=== PATIENT | male | born 1965 | race African-American/Black ===

== ENCOUNTER 2017-08-06 16:24 | Emergency (ER) | payer SELFPAY | END 2017-08-06 18:31 | disposition home or self-care (01) | LOC: ERS 16:24 | DX: R04.0 Epistaxis (principal); F17.210 Nicotine dependence, cigarettes, uncomplicated | CPT/HCPCS: 99283 ==

== ENCOUNTER 2018-04-09 06:07 | Emergency (ER) | payer SELFPAY ==
[2018-04-09] MEDS ORDERED: Proparacaine 0.5% Opth 15 ML BOT ONE (06:22)
[2018-04-09] MEDS ORDERED: Fluorescein Opthalmic Strip ONE (06:48)
== END 2018-04-09 07:30 | disposition home or self-care (01) ==
LOC: ERS 06:07
DX: T15.01XA Foreign body in cornea, right eye, initial encounter (principal); F17.210 Nicotine dependence, cigarettes, uncomplicated
CPT/HCPCS: 99283

== ENCOUNTER 2021-10-11 20:02 | Inpatient (IN) | payer SELFPAY ==
[2021-10-11 20:31] LABS: #Eosinphils 0.1 thou/uL (0.0-0.7); #Lymphocytes 1.1 thou/uL (1.20-3.40); #Monocytes 0.6 thou/uL (0.11-0.59); #Neutrophils 4.4 thou/uL (1.40-6.50); %Basophils 0.7 % (0.0-1.0); %Eosinophils 1.9 % (0.0-10.0); %Lymphocytes 17.6 % (21.0-51.0); %Monocytes 9.5 % (0.0-10.0); %Neutrophils 70.4 % (42.0-75.0); Hemoglobin 14.9 g/dL (14.0-18.0); Mean Corpuscular HGB CONC 32.5 g/dL (32.0-36.0); Mean Corpuscular Hemoglobin 30.7 pg (27.0-31.0); Mean Corpuscular Volume 94.3 fL (78.0-98.0); Mean Platelet Volume 8.8 fL (7.4-10.4); Platelet Count 123 thou/uL (130-400); RBC Distribution Width 12.8 % (11.5-14.5); Red Blood Cell (RBC) Count 4.87 mill/uL (4.70-6.10); White Blood Cell (WBC) Count 6.3 thou/uL (4.8-10.8)
[2021-10-11 20:42] LABS: INR-International Normal Ratio 1.1; PTT 33.3 sec (22.9-36.1); Prothrombin Time 14.6 sec (12.0-14.7)
[2021-10-11 21:00] LABS: ALT (SGPT) 14 U/L (8-55); AST (SGOT) 25 U/L (5-34); Albumin 3.8 g/dL (3.5-5.0); Alkaline Phosphatase 76 U/L (40-110); Anion Gap 11 mmol/L (10-20); BUN (Urea Nitrogen) 18 mg/dL (8.4-25.7); Bilirubin, Total 0.5 mg/dL (0.2-1.2); Calc. Creatinine Clearance 0 mL/min (70-130); Carbon Dioxide 30 mmol/L (22-29); Chloride 102 mmol/L (98-107); Globulin 5.9 g/dL (2.4-3.5); Glucose 88 mg/dL (70-105); Potassium 3.7 mmol/L (3.5-5.1); Protein, Total 9.7 g/dL (6.0-8.3); Sodium 139 mmol/L (136-145)
[2021-10-11] MEDS ORDERED: Aspirin Chewable 81 MG TAB ONE (21:16)
[2021-10-12 01:02] VITALS: BMI 23.1
[2021-10-12] MEDS ORDERED: hydrALAZINE 20 MG/ML VIAL SLOW IVP PRN (03:28)
[2021-10-12] MEDS ORDERED: Ondansetron PF 4 MG/2 ML Vial IVP PRN (03:28)
[2021-10-12 06:15] LABS: #Eosinphils 0.2 thou/uL (0.0-0.7); #Lymphocytes 1.2 thou/uL (1.20-3.40); #Monocytes 0.7 thou/uL (0.11-0.59); #Neutrophils 3.2 thou/uL (1.40-6.50); %Basophils 0.6 % (0.0-1.0); %Lymphocytes 23.1 % (21.0-51.0); %Monocytes 12.2 % (0.0-10.0); %Neutrophils 60.2 % (42.0-75.0); Hemoglobin 13.7 g/dL (14.0-18.0); Mean Corpuscular HGB CONC 33.4 g/dL (32.0-36.0); Mean Corpuscular Hemoglobin 31.9 pg (27.0-31.0); Mean Corpuscular Volume 95.6 fL (78.0-98.0); Mean Platelet Volume 8.8 fL (7.4-10.4); Platelet Count 116 thou/uL (130-400); White Blood Cell (WBC) Count 5.4 thou/uL (4.8-10.8)
[2021-10-12 06:37] LABS: Anion Gap 9 mmol/L (10-20); BUN (Urea Nitrogen) 15 mg/dL (8.4-25.7); Calc. Creatinine Clearance 65 mL/min (70-130); Calcium 9.1 mg/dL (7.8-10.44); Carbon Dioxide 29 mmol/L (22-29); Cardiac Risk 3.6 (Less than 4.5); Chloride 106 mmol/L (98-107); Cholesterol 137 mg/dl (< 200 Desired); Glucose 80 mg/dL (70-105); HDL Cholesterol 38 mg/dL (>60 Neg Risk); LDL Cholesterol, Calculated 90 mg/dL; Potassium 3.8 mmol/L (3.5-5.1); Sodium 140 mmol/L (136-145); Triglycerides 44 mg/dL (Less than 150)
[2021-10-12] MEDS: Aspirin 81 mg Enteric Coated Tablet PO SCH (09:14)
[2021-10-12 11:45] LABS: SARS-CoV-2 PCR by NAA Not Detected (NotDetected)
[2021-10-12] MEDS: Acetaminophen 325 MG TAB PO PRN (12:24)
[2021-10-12] MEDS ORDERED: Atorvastatin Calcium 40 MG TAB PO SCH (21:00)
[2021-10-13 05:47] LABS: #Eosinphils 0.3 thou/uL (0.0-0.7); #Lymphocytes 1.1 thou/uL (1.20-3.40); #Monocytes 0.6 thou/uL (0.11-0.59); #Neutrophils 2.6 thou/uL (1.40-6.50); %Basophils 0.3 % (0.0-1.0); %Eosinophils 5.8 % (0.0-10.0); %Monocytes 12.3 % (0.0-10.0); %Neutrophils 56.7 % (42.0-75.0); Hemoglobin 14.7 g/dL (14.0-18.0); Mean Corpuscular HGB CONC 32.4 g/dL (32.0-36.0); Mean Corpuscular Hemoglobin 31.5 pg (27.0-31.0); Mean Corpuscular Volume 97.1 fL (78.0-98.0); Mean Platelet Volume 8.9 fL (7.4-10.4); Platelet Count 105 thou/uL (130-400); Red Blood Cell (RBC) Count 4.69 mill/uL (4.70-6.10); White Blood Cell (WBC) Count 4.6 thou/uL (4.8-10.8)
[2021-10-13 06:02] LABS: Anion Gap 9 mmol/L (10-20); BUN (Urea Nitrogen) 15 mg/dL (8.4-25.7); Calc. Creatinine Clearance 73 mL/min (70-130); Calcium 9.1 mg/dL (7.8-10.44); Carbon Dioxide 24 mmol/L (22-29); Chloride 105 mmol/L (98-107); Glucose 82 mg/dL (70-105); Potassium 4.1 mmol/L (3.5-5.1); Sodium 134 mmol/L (136-145)
[2021-10-13] MEDS: Aspirin 81 mg Enteric Coated Tablet PO SCH (09:23)
[2021-10-13] MEDS: Carvedilol 6.25 MG TAB PO SCH ×2 (09:23→16:22)
[2021-10-13] MEDS: Acetaminophen 325 MG TAB PO PRN (16:22)
[2021-10-13 16:45] LABS: Amphetamine Detected (NotDetected); Barbiturates Screen Not Detected (NotDetected); Benzodiazepine Screen Not Detected (NotDetected); Cocaine Metabolite Screen Not Detected (NotDetected); Methadone Not Detected (NotDetected); Methamphetamine Detected (NotDetected); Opiate Screen Not Detected (NotDetected); Oxycodone Screen Not Detected (NotDetected); Phencyclidine (PCP) Not Detected (NotDetected); THC/Cannabinoid Screen Detected (NotDetected); Tricyclic Screen Not Detected (NotDetected)
[2021-10-13] MEDS ORDERED: Atorvastatin Calcium 40 MG TAB PO SCH (21:00)
[2021-10-14] MEDS: Acetaminophen 325 MG TAB PO PRN (08:17)
[2021-10-14] MEDS: Aspirin 81 mg Enteric Coated Tablet PO SCH (08:18)
[2021-10-14] MEDS: Carvedilol 6.25 MG TAB PO SCH ×2 (08:18→17:29)
[2021-10-14] MEDS ORDERED: Amlodipine 5 MG TAB PO SCH (16:00)
[2021-10-14 16:21] VITALS: BP 152/104; TEMP 98.1
== END 2021-10-14 18:30 | disposition home or self-care (01) | DRG 65 ==
LOC: ERS 20:02 → NEURO 22:00
PROVIDERS: ADMIT Internal Medicine; ATTEND Hospitalist
PROC: 4A10X4Z Monitoring of Central Nervous Electrical Activity, External Approach (ICD-10-PCS; principal; 2021-10-12)
DX: I63.89 Other cerebral infarction (principal); G81.94 Hemiplegia, unspecified affecting left nondominant side; F17.210 Nicotine dependence, cigarettes, uncomplicated; F19.10 Other psychoactive substance abuse, uncomplicated; R27.0 Ataxia, unspecified; H53.8 Other visual disturbances; I10 Essential (primary) hypertension; F12.929 Cannabis use, unspecified with intoxication, unspecified; F15.90 Other stimulant use, unspecified, uncomplicated; Z20.822 Contact with and (suspected) exposure to COVID-19
CPT/HCPCS: 36415; 36416; 70450; 70496; 70498; 70551; 71045; 74230; 80048; 80053; 80061; 80306; 84484; 85025; 85610; 85730; 93005; 93306; 93880; 95712; 95819; 95957; U0003; U0005

== ENCOUNTER 2021-10-20 12:42 | Inpatient (IN) | payer SELFPAY ==
[~2021-10-20 12:42] MED LIST: ISOVUE-370 76%-LOCM 1 ML ONE
[2021-10-20 13:43] LABS: Bilirubin Negative (Negative); Blood, Urine Negative (Negative); Clarity Clear (Clear); Glucose, Urine (Dipstick) Normal (Negative); Ketone, Urine Negative (Negative); Leukocyte Negative Leu/uL (Negative); Nitrite Negative (Negative); Protein, Urine (Dipstick) Negative (Neg-Trace); Specific Gravity, Urine 1.035 (1.002-1.036); Urobilinogen Normal mg/dL (Less than 2)
[2021-10-20 13:52] LABS: Amphetamine Detected (NotDetected); Barbiturates Screen Not Detected (NotDetected); Benzodiazepine Screen Not Detected (NotDetected); Cocaine Metabolite Screen Not Detected (NotDetected); Methadone Not Detected (NotDetected); Methamphetamine Detected (NotDetected); Opiate Screen Not Detected (NotDetected); Oxycodone Screen Not Detected (NotDetected); Phencyclidine (PCP) Not Detected (NotDetected); THC/Cannabinoid Screen Not Detected (NotDetected); Tricyclic Screen Not Detected (NotDetected)
[2021-10-20 13:54] LABS: ALT (SGPT) 21 U/L (8-55); AST (SGOT) 30 U/L (5-34); Albumin 3.3 g/dL (3.5-5.0); Alkaline Phosphatase 72 U/L (40-110); Anion Gap 13 mmol/L (10-20); BUN (Urea Nitrogen) 8 mg/dL (8.4-25.7); Bilirubin, Total 0.4 mg/dL (0.2-1.2); CK (CPK) 201 U/L (30-200); Calc. Creatinine Clearance 0 mL/min (70-130); Calcium 9.4 mg/dL (7.8-10.44); Carbon Dioxide 20 mmol/L (22-29); Chloride 106 mmol/L (98-107); Globulin 5.3 g/dL (2.4-3.5); Glucose 74 mg/dL (70-105); Protein, Total 8.6 g/dL (6.0-8.3); Sodium 135 mmol/L (136-145)
[2021-10-20 14:02] LABS: Hemoglobin 12.7 g/dL (14.0-18.0); Mean Corpuscular HGB CONC 33.2 g/dL (32.0-36.0); Mean Corpuscular Hemoglobin 31.5 pg (27.0-31.0); Mean Platelet Volume 9.2 fL (7.4-10.4); Platelet Count 104 thou/uL (130-400); RBC Distribution Width 12.6 % (11.5-14.5); Red Blood Cell (RBC) Count 4.03 mill/uL (4.70-6.10); White Blood Cell (WBC) Count 5.4 thou/uL (4.8-10.8)
[2021-10-20 14:07] LABS: PTT 35.6 sec (22.9-36.1); Prothrombin Time 15.5 sec (12.0-14.7)
[2021-10-20 14:09] LABS: INR-International Normal Ratio 1.2
[2021-10-20 14:17] LABS: Band 1 % (5-11); Eosinophils 4 % (0-10); Lymphocytes 11 % (21-51); MDiff Complete? YES; Monocytes 2 % (0-10); Neutrophil 82 % (42-75); Platelet Morphology Comment Appears Decreased; RBC Morphology Normal
[2021-10-20 14:20] LABS: Acetaminophen Less than 6.0 mcg/mL (10.0-30.0); Alcohol Less than 10 mg/dL (Less than 10); Salicylate Less than 8.0 mg/dL (15.0-30.0)
[2021-10-20] MEDS ORDERED: Ondansetron PF 4 MG/2 ML Vial IVP PRN (18:00)
[2021-10-20] MEDS ORDERED: Ondansetron ODT 4 MG TAB SL PRN (18:00)
[2021-10-20] MEDS ORDERED: Acetaminophen 325 MG TAB PO PRN (18:00)
[2021-10-20 18:20] VITALS: BMI 22.6
[2021-10-20] MEDS ORDERED: Senokot S 8.6-50 MG TAB PO PRN (18:45)
[2021-10-20] MEDS ORDERED: Bisacodyl 5 MG TAB PO PRN (18:45)
[2021-10-20] MEDS: Sodium Chloride 0.9% 1,000 ML IV SCH (20:23)
[2021-10-20 22:49] LABS: SARS-CoV-2 PCR by NAA Not Detected (NotDetected)
[2021-10-21 05:32] LABS: #Eosinphils 0.1 thou/uL (0.0-0.7); #Monocytes 0.6 thou/uL (0.11-0.59); #Neutrophils 7.9 thou/uL (1.40-6.50); %Eosinophils 1.1 % (0.0-10.0); %Lymphocytes 10.3 % (21.0-51.0); %Monocytes 6.2 % (0.0-10.0); %Neutrophils 82.3 % (42.0-75.0); Hemoglobin 13.1 g/dL (14.0-18.0); Mean Corpuscular HGB CONC 33.5 g/dL (32.0-36.0); Mean Corpuscular Hemoglobin 31.8 pg (27.0-31.0); Mean Corpuscular Volume 94.9 fL (78.0-98.0); Mean Platelet Volume 9.5 fL (7.4-10.4); Platelet Count 88 thou/uL (130-400); RBC Distribution Width 12.8 % (11.5-14.5); Red Blood Cell (RBC) Count 4.12 mill/uL (4.70-6.10); White Blood Cell (WBC) Count 9.6 thou/uL (4.8-10.8)
[2021-10-21 05:59] LABS: ALT (SGPT) 16 U/L (8-55); AST (SGOT) 23 U/L (5-34); Albumin 3.3 g/dL (3.5-5.0); Alkaline Phosphatase 71 U/L (40-110); Anion Gap 9 mmol/L (10-20); BUN (Urea Nitrogen) 8 mg/dL (8.4-25.7); Bilirubin, Total 0.9 mg/dL (0.2-1.2); Calc. Creatinine Clearance 77 mL/min (70-130); Calcium 9.2 mg/dL (7.8-10.44); Carbon Dioxide 24 mmol/L (22-29); Chloride 106 mmol/L (98-107); Globulin 5.1 g/dL (2.4-3.5); Glucose 88 mg/dL (70-105); Potassium 4.4 mmol/L (3.5-5.1); Protein, Total 8.4 g/dL (6.0-8.3); Sodium 135 mmol/L (136-145)
[2021-10-21] MEDS ORDERED: Amlodipine 5 MG TAB PO PRN (09:43)
[2021-10-21] MEDS: Sodium Chloride 0.9% 1,000 ML IV SCH (10:33)
[2021-10-21] MEDS: Enalaprilat Dihydrate 2.5 MG in Dextrose 5% in Water 50 ML IVPB SCH ×2 (10:46→17:46)
[2021-10-21] MEDS ORDERED: Clopidogrel Bisulfate 75 MG TAB PO SCH (14:30)
[2021-10-21] MEDS ORDERED: Morphine 4 MG/ML VIAL SLOW IVP PRN (15:14)
[2021-10-21] MEDS: Carvedilol 6.25 MG TAB PO SCH (16:32)
[2021-10-21] MEDS: Atorvastatin Calcium 40 MG TAB PO SCH (20:29)
[2021-10-22] MEDS: Sodium Chloride 0.9% 1,000 ML IV SCH ×2 (00:17→12:18)
[2021-10-22] MEDS: Enalaprilat Dihydrate 2.5 MG in Dextrose 5% in Water 50 ML IVPB SCH ×2 (00:17→05:46)
[2021-10-22 05:47] LABS: Anion Gap 8 mmol/L (10-20); BUN (Urea Nitrogen) 10 mg/dL (8.4-25.7); Calc. Creatinine Clearance 82 mL/min (70-130); Calcium 9.1 mg/dL (7.8-10.44); Carbon Dioxide 26 mmol/L (22-29); Chloride 106 mmol/L (98-107); Glucose 76 mg/dL (70-105); Potassium 3.8 mmol/L (3.5-5.1); Sodium 136 mmol/L (136-145)
[2021-10-22] MEDS: Aspirin 300 MG Suppository PR SCH (08:40)
[2021-10-22] MEDS: Carvedilol 6.25 MG TAB PO SCH ×2 (09:45→16:38)
[2021-10-22] MEDS: Clopidogrel Bisulfate 75 MG TAB PO SCH (09:45)
[2021-10-22] MEDS: Aspirin 81 mg Enteric Coated Tablet PO SCH (09:45)
[2021-10-22] MEDS: Enalaprilat Dihydrate 1.25 MG in Dextrose 5% in Water 50 ML IVPB SCH ×2 (12:50→17:48)
[2021-10-22] MEDS: Lorazepam 2 MG/ML VIAL SLOW IVP PRN ×2 (13:05→20:08)
[2021-10-22] MEDS: Atorvastatin Calcium 40 MG TAB PO SCH (20:13)
[2021-10-23] MEDS: Enalaprilat Dihydrate 1.25 MG in Dextrose 5% in Water 50 ML IVPB SCH ×2 (00:24→05:35)
[2021-10-23] MEDS: Sodium Chloride 0.9% 1,000 ML IV SCH ×2 (02:37→16:02)
[2021-10-23 05:23] LABS: Anion Gap 9 mmol/L (10-20); BUN (Urea Nitrogen) 11 mg/dL (8.4-25.7); Calc. Creatinine Clearance 88 mL/min (70-130); Carbon Dioxide 24 mmol/L (22-29); Chloride 106 mmol/L (98-107); Glucose 73 mg/dL (70-105); Potassium 3.7 mmol/L (3.5-5.1); Sodium 135 mmol/L (136-145)
[2021-10-23] MEDS: Lorazepam 2 MG/ML VIAL SLOW IVP PRN ×2 (08:01→15:58)
[2021-10-23] MEDS ORDERED: FLU VACC QS2021-22(6MOS UP)/PF 60 MCG/0.5 ML SYRINGE IM ONE (09:00)
[2021-10-23] MEDS: Aspirin 300 MG Suppository PR SCH (09:37)
[2021-10-23] MEDS: Carvedilol 6.25 MG TAB PO SCH ×2 (09:37→16:02)
[2021-10-23] MEDS: Aspirin 81 mg Enteric Coated Tablet PO SCH (09:37)
[2021-10-23] MEDS: Clopidogrel Bisulfate 75 MG TAB PO SCH (09:38)
[2021-10-23] MEDS ORDERED: Lorazepam 2 MG/ML VIAL SLOW IVP SCH (10:30)
[2021-10-23] MEDS ORDERED: Enalaprilat Dihydrate 2.5 MG in Dextrose 5% in Water 50 ML IVPB SCH (12:00)
[2021-10-23] MEDS: Enalaprilat Dihydrate 2.5 MG in Dextrose 5% in Water 50 ML IVPB SCH (21:00)
[2021-10-23] MEDS: Atorvastatin Calcium 40 MG TAB PO SCH (21:09)
[2021-10-24] MEDS: Lorazepam 2 MG/ML VIAL SLOW IVP PRN ×2 (00:16→08:06)
[2021-10-24] MEDS: Enalaprilat Dihydrate 2.5 MG in Dextrose 5% in Water 50 ML IVPB SCH ×4 (03:38→22:04)
[2021-10-24 05:42] LABS: Anion Gap 11 mmol/L (10-20); BUN (Urea Nitrogen) 10 mg/dL (8.4-25.7); Calc. Creatinine Clearance 88 mL/min (70-130); Calcium 9.2 mg/dL (7.8-10.44); Carbon Dioxide 24 mmol/L (22-29); Chloride 105 mmol/L (98-107); Glucose 87 mg/dL (70-105); Potassium 3.5 mmol/L (3.5-5.1); Sodium 136 mmol/L (136-145)
[2021-10-24] MEDS: Sodium Chloride 0.9% 1,000 ML IV SCH (06:58)
[2021-10-24] MEDS: Aspirin 300 MG Suppository PR SCH (08:31)
[2021-10-24 11:46] LABS: #Eosinphils 0.1 thou/uL (0.0-0.7); #Lymphocytes 0.8 thou/uL (1.20-3.40); #Monocytes 0.7 thou/uL (0.11-0.59); #Neutrophils 6.4 thou/uL (1.40-6.50); %Basophils 0.2 % (0.0-1.0); %Eosinophils 1.1 % (0.0-10.0); %Monocytes 8.4 % (0.0-10.0); %Neutrophils 80.3 % (42.0-75.0); Hemoglobin 14.5 g/dL (14.0-18.0); Mean Corpuscular HGB CONC 34.5 g/dL (32.0-36.0); Mean Corpuscular Hemoglobin 31.4 pg (27.0-31.0); Mean Corpuscular Volume 90.9 fL (78.0-98.0); Mean Platelet Volume 9.3 fL (7.4-10.4); Platelet Count 121 thou/uL (130-400); RBC Distribution Width 12.4 % (11.5-14.5); Red Blood Cell (RBC) Count 4.62 mill/uL (4.70-6.10); White Blood Cell (WBC) Count 7.9 thou/uL (4.8-10.8)
[2021-10-24] MEDS: Carvedilol 6.25 MG TAB PO SCH ×2 (12:53→17:18)
[2021-10-24] MEDS: Aspirin 81 mg Enteric Coated Tablet PO SCH (12:56)
[2021-10-24] MEDS: Clopidogrel Bisulfate 75 MG TAB PO SCH (12:56)
[2021-10-24] MEDS: Dextrose 5 % And 0.9 % NaCl 1,000 ML IV SCH (21:57)
[2021-10-24] MEDS: Atorvastatin Calcium 40 MG TAB PO SCH (22:04)
[2021-10-25] MEDS: Enalaprilat Dihydrate 2.5 MG in Dextrose 5% in Water 50 ML IVPB SCH ×4 (04:26→20:34)
[2021-10-25 06:05] LABS: #Eosinphils 0.3 thou/uL (0.0-0.7); #Lymphocytes 1.3 thou/uL (1.20-3.40); #Monocytes 0.8 thou/uL (0.11-0.59); #Neutrophils 3.9 thou/uL (1.40-6.50); %Basophils 0.5 % (0.0-1.0); %Eosinophils 4.9 % (0.0-10.0); %Lymphocytes 20.3 % (21.0-51.0); %Monocytes 12.4 % (0.0-10.0); %Neutrophils 61.9 % (42.0-75.0); Hemoglobin 13.9 g/dL (14.0-18.0); Mean Corpuscular HGB CONC 31.6 g/dL (32.0-36.0); Mean Corpuscular Hemoglobin 29.2 pg (27.0-31.0); Mean Corpuscular Volume 92.5 fL (78.0-98.0); Mean Platelet Volume 9.5 fL (7.4-10.4); Platelet Count 134 thou/uL (130-400); RBC Distribution Width 12.5 % (11.5-14.5); Red Blood Cell (RBC) Count 4.77 mill/uL (4.70-6.10); White Blood Cell (WBC) Count 6.3 thou/uL (4.8-10.8)
[2021-10-25] MEDS: Aspirin 81 mg Enteric Coated Tablet PO SCH (09:39)
[2021-10-25] MEDS: Clopidogrel Bisulfate 75 MG TAB PO SCH (09:39)
[2021-10-25] MEDS: Carvedilol 6.25 MG TAB PO SCH ×2 (09:39→16:25)
[2021-10-25] MEDS: Dextrose 5 % And 0.9 % NaCl 1,000 ML IV SCH (09:43)
[2021-10-25] MEDS: Aspirin 300 MG Suppository PR SCH (09:51)
[2021-10-25] MEDS: Atorvastatin Calcium 40 MG TAB PO SCH (20:34)
[2021-10-26] MEDS: Dextrose 5 % And 0.9 % NaCl 1,000 ML IV SCH ×2 (01:13→18:34)
[2021-10-26] MEDS: Enalaprilat Dihydrate 2.5 MG in Dextrose 5% in Water 50 ML IVPB SCH ×2 (04:55→10:14)
[2021-10-26] MEDS ORDERED: Aspirin 81 mg Enteric Coated Tablet PO SCH (09:00)
[2021-10-26] MEDS: Carvedilol 6.25 MG TAB PO SCH ×2 (09:03→18:30)
[2021-10-26] MEDS: Clopidogrel Bisulfate 75 MG TAB PO SCH (09:04)
[2021-10-26] MEDS ORDERED: ALPRAZolam 0.25 MG TAB PO SCH (13:00)
[2021-10-26] MEDS ORDERED: ALPRAZolam 0.5 MG TAB PO SCH (13:00)
[2021-10-26] MEDS: Atorvastatin Calcium 40 MG TAB PO SCH (22:09)
[2021-10-26] MEDS: Lorazepam 2 MG/ML VIAL SLOW IVP PRN (22:16)
[2021-10-27] MEDS: Dextrose 5 % And 0.9 % NaCl 1,000 ML IV SCH (00:20)
[2021-10-27] MEDS ORDERED: Lisinopril 10 MG TAB PO SCH ×2 (09:00→13:30)
[2021-10-27] MEDS ORDERED: Amlodipine 5 MG TAB PO SCH (09:00)
[2021-10-27] MEDS: Carvedilol 6.25 MG TAB PO SCH ×2 (09:16→18:06)
[2021-10-27] MEDS: Clopidogrel Bisulfate 75 MG TAB PO SCH (09:16)
[2021-10-27] MEDS: Aspirin Chewable 81 MG TAB PO SCH (09:16)
[2021-10-27 09:30] LABS: #Eosinphils 0.3 thou/uL (0.0-0.7); #Lymphocytes 1.2 thou/uL (1.20-3.40); #Monocytes 0.6 thou/uL (0.11-0.59); #Neutrophils 4.2 thou/uL (1.40-6.50); %Basophils 0.4 % (0.0-1.0); %Eosinophils 4.3 % (0.0-10.0); %Lymphocytes 18.4 % (21.0-51.0); %Monocytes 9.5 % (0.0-10.0); %Neutrophils 67.4 % (42.0-75.0); Hemoglobin 16.7 g/dL (14.0-18.0); Mean Corpuscular HGB CONC 33.4 g/dL (32.0-36.0); Mean Corpuscular Hemoglobin 30.9 pg (27.0-31.0); Mean Corpuscular Volume 92.3 fL (78.0-98.0); Mean Platelet Volume 9.2 fL (7.4-10.4); Platelet Count 135 thou/uL (130-400); RBC Distribution Width 12.5 % (11.5-14.5); Red Blood Cell (RBC) Count 5.41 mill/uL (4.70-6.10); White Blood Cell (WBC) Count 6.3 thou/uL (4.8-10.8)
[2021-10-27 09:52] LABS: Anion Gap 12 mmol/L (10-20); BUN (Urea Nitrogen) 7 mg/dL (8.4-25.7); Calc. Creatinine Clearance 89 mL/min (70-130); Calcium 9.7 mg/dL (7.8-10.44); Carbon Dioxide 22 mmol/L (22-29); Chloride 107 mmol/L (98-107); Glucose 90 mg/dL (70-105); Potassium 3.6 mmol/L (3.5-5.1); Sodium 137 mmol/L (136-145)
[2021-10-27] MEDS ORDERED: ALPRAZolam 0.25 MG TAB PO SCH (11:00)
[2021-10-27] MEDS: Amlodipine 5 MG TAB PO SCH (20:43)
[2021-10-27] MEDS: Atorvastatin Calcium 40 MG TAB PO SCH (20:43)
[2021-10-27] MEDS: ALPRAZolam 0.25 MG TAB PO SCH (20:44)
[2021-10-28] MEDS: Aspirin Chewable 81 MG TAB PO SCH (09:50)
[2021-10-28] MEDS: Lisinopril 10 MG TAB PO SCH (09:50)
[2021-10-28] MEDS: Clopidogrel Bisulfate 75 MG TAB PO SCH (09:51)
[2021-10-28] MEDS: Amlodipine 5 MG TAB PO SCH ×2 (09:51→21:53)
[2021-10-28] MEDS: Carvedilol 6.25 MG TAB PO SCH ×2 (09:51→18:12)
[2021-10-28] MEDS: ALPRAZolam 0.25 MG TAB PO SCH ×3 (09:52→22:02)
[2021-10-28] MEDS: Atorvastatin Calcium 40 MG TAB PO SCH ×2 (21:51→22:03)
[2021-10-29] MEDS: Clopidogrel Bisulfate 75 MG TAB PO SCH (09:08)
[2021-10-29] MEDS: Lisinopril 10 MG TAB PO SCH (09:08)
[2021-10-29] MEDS: Amlodipine 5 MG TAB PO SCH ×2 (09:08→20:46)
[2021-10-29] MEDS: ALPRAZolam 0.25 MG TAB PO SCH ×2 (09:08→20:46)
[2021-10-29] MEDS: Carvedilol 6.25 MG TAB PO SCH ×2 (09:08→18:00)
[2021-10-29] MEDS: Aspirin Chewable 81 MG TAB PO SCH (09:09)
[2021-10-29 12:22] LABS: SARS-CoV-2 PCR by NAA Not Detected (NotDetected)
[2021-10-29] MEDS: Dextrose 5 % And 0.9 % NaCl 1,000 ML IV SCH (19:48)
[2021-10-29] MEDS: Atorvastatin Calcium 40 MG TAB PO SCH (20:46)
[2021-10-30] MEDS: Dextrose 5 % And 0.9 % NaCl 1,000 ML IV SCH ×2 (09:36→21:56)
[2021-10-30] MEDS: Carvedilol 6.25 MG TAB PO SCH ×2 (09:44→19:46)
[2021-10-30] MEDS: Lisinopril 10 MG TAB PO SCH (09:44)
[2021-10-30] MEDS: Clopidogrel Bisulfate 75 MG TAB PO SCH (09:44)
[2021-10-30] MEDS: Aspirin Chewable 81 MG TAB PO SCH (09:44)
[2021-10-30] MEDS: ALPRAZolam 0.25 MG TAB PO SCH (09:44)
[2021-10-30] MEDS: Amlodipine 5 MG TAB PO SCH ×2 (09:44→21:56)
[2021-10-30] MEDS: Atorvastatin Calcium 40 MG TAB PO SCH (21:56)
[2021-10-30] MEDS: ALPRAZolam 1 MG TAB PO SCH (21:56)
[2021-10-31] MEDS: ALPRAZolam 0.25 MG TAB PO SCH (03:34)
[2021-10-31] MEDS: Lorazepam 2 MG/ML VIAL SLOW IVP PRN ×2 (06:45→21:30)
[2021-10-31] MEDS: Lisinopril 10 MG TAB PO SCH (11:06)
[2021-10-31] MEDS: Aspirin Chewable 81 MG TAB PO SCH (11:09)
[2021-10-31] MEDS: Carvedilol 6.25 MG TAB PO SCH ×2 (11:10→18:07)
[2021-10-31] MEDS: Clopidogrel Bisulfate 75 MG TAB PO SCH (11:10)
[2021-10-31] MEDS: Amlodipine 5 MG TAB PO SCH ×2 (11:10→21:27)
[2021-10-31] MEDS: ALPRAZolam 1 MG TAB PO SCH ×2 (11:10→21:27)
[2021-10-31] MEDS ORDERED: hydrALAZINE 20 MG/ML VIAL SLOW IVP PRN (18:00)
[2021-10-31] MEDS: Atorvastatin Calcium 40 MG TAB PO SCH (21:27)
[2021-10-31] MEDS: Dextrose 5 % And 0.9 % NaCl 1,000 ML IV SCH (21:28)
[2021-11-01] MEDS: Dextrose 5 % And 0.9 % NaCl 1,000 ML IV SCH (09:13)
[2021-11-01] MEDS: Carvedilol 6.25 MG TAB PO SCH ×2 (13:11→16:41)
[2021-11-01] MEDS: ALPRAZolam 1 MG TAB PO SCH ×2 (13:11→20:21)
[2021-11-01] MEDS: Amlodipine 5 MG TAB PO SCH ×2 (13:12→20:21)
[2021-11-01] MEDS: Clopidogrel Bisulfate 75 MG TAB PO SCH (14:16)
[2021-11-01] MEDS: Lisinopril 10 MG TAB PO SCH (14:16)
[2021-11-01] MEDS: Aspirin Chewable 81 MG TAB PO SCH (14:16)
[2021-11-01] MEDS ORDERED: hydrALAZINE 20 MG/ML VIAL SLOW IVP PRN (15:23)
[2021-11-01] MEDS: Pantoprazole 40 MG VIAL IVP SCH (20:04)
[2021-11-01] MEDS: Atorvastatin Calcium 40 MG TAB PO SCH (20:21)
[2021-11-02] MEDS ORDERED: ceFAZolin 2 GM/DEX 5% 100 ML BAG ONE (09:00)
[2021-11-02] MEDS ORDERED: Lidocaine 1% PF 5 ML VIAL ONE (09:10)
[2021-11-02] MEDS ORDERED: PROPOFOL 200 MG/20 ML VIAL ONE (09:10)
[2021-11-02] MEDS ORDERED: Promethazine HCl 25 MG/ML VIAL IVPB PRN (09:53)
[2021-11-02] MEDS ORDERED: Ondansetron HCl/PF 4 MG/2 ML Vial IVP PRN (09:53)
[2021-11-02] MEDS ORDERED: Promethazine HCl 25 MG/ML VIAL IM PRN (09:53)
[2021-11-02 11:22] LABS: #Eosinphils 0.2 thou/uL (0.0-0.7); #Lymphocytes 1.2 thou/uL (1.20-3.40); #Monocytes 0.4 thou/uL (0.11-0.59); #Neutrophils 4.5 thou/uL (1.40-6.50); %Basophils 0.4 % (0.0-1.0); %Eosinophils 3.2 % (0.0-10.0); %Lymphocytes 18.3 % (21.0-51.0); %Monocytes 6.3 % (0.0-10.0); %Neutrophils 71.8 % (42.0-75.0); Hemoglobin 15.4 g/dL (14.0-18.0); Mean Corpuscular HGB CONC 33.3 g/dL (32.0-36.0); Mean Corpuscular Hemoglobin 30.6 pg (27.0-31.0); Mean Corpuscular Volume 91.8 fL (78.0-98.0); Mean Platelet Volume 8.8 fL (7.4-10.4); Platelet Count 134 thou/uL (130-400); RBC Distribution Width 12.4 % (11.5-14.5); Red Blood Cell (RBC) Count 5.03 mill/uL (4.70-6.10); White Blood Cell (WBC) Count 6.3 thou/uL (4.8-10.8)
[2021-11-02 11:58] LABS: Anion Gap 10 mmol/L (10-20); BUN (Urea Nitrogen) 10 mg/dL (8.4-25.7); Calc. Creatinine Clearance 78 mL/min (70-130); Calcium 9.2 mg/dL (7.8-10.44); Carbon Dioxide 25 mmol/L (22-29); Chloride 107 mmol/L (98-107); Glucose 104 mg/dL (70-105); Potassium 3.9 mmol/L (3.5-5.1); Sodium 138 mmol/L (136-145)
[2021-11-02] MEDS: Pantoprazole 40 MG VIAL IVP SCH (12:02)
[2021-11-02] MEDS: ALPRAZolam 1 MG TAB PO SCH (12:03)
[2021-11-02] MEDS: Amlodipine 5 MG TAB PO SCH (12:04)
[2021-11-02] MEDS: Clopidogrel Bisulfate 75 MG TAB PO SCH (12:04)
[2021-11-02] MEDS: Lisinopril 10 MG TAB PO SCH (12:04)
[2021-11-02] MEDS: Aspirin Chewable 81 MG TAB PO SCH (12:04)
[2021-11-02] MEDS: Carvedilol 6.25 MG TAB PO SCH ×2 (12:07→17:26)
[2021-11-02] MEDS ORDERED: Morphine 4 MG/ML VIAL SLOW IVP SCH (13:15)
[2021-11-02] MEDS: Dextrose 5 % And 0.9 % NaCl 1,000 ML IV SCH (17:31)
[2021-11-03] MEDS: Pantoprazole 40 MG VIAL IVP SCH ×2 (00:11→09:45)
[2021-11-03] MEDS: Atorvastatin Calcium 40 MG TAB PO SCH ×2 (00:11→20:55)
[2021-11-03] MEDS: ALPRAZolam 1 MG TAB PO SCH ×3 (00:12→22:18)
[2021-11-03] MEDS: Amlodipine 5 MG TAB PO SCH ×3 (00:13→20:54)
[2021-11-03] MEDS: Aspirin Chewable 81 MG TAB PO SCH (09:45)
[2021-11-03] MEDS: Lisinopril 10 MG TAB PO SCH (09:45)
[2021-11-03] MEDS: Carvedilol 6.25 MG TAB PO SCH ×2 (09:46→16:44)
[2021-11-03] MEDS: Clopidogrel Bisulfate 75 MG TAB PO SCH (09:46)
[2021-11-03 13:46] LABS: SARS-CoV-2 PCR by NAA Not Detected (NotDetected)
[2021-11-03] MEDS: Lorazepam 2 MG/ML VIAL SLOW IVP PRN (15:23)
[2021-11-03] MEDS: Bacitracin 1 PK TOP PRN (17:28)
[2021-11-03] MEDS: Lisinopril 20 MG TAB PO SCH (20:54)
[2021-11-03] MEDS: Pantoprazole 40 MG GRANULES PACKET PER TUBE SCH (20:56)
[2021-11-04] MEDS: Amlodipine 5 MG TAB PO SCH ×2 (09:16→20:14)
[2021-11-04] MEDS: Carvedilol 6.25 MG TAB PO SCH ×2 (09:16→16:21)
[2021-11-04] MEDS: Pantoprazole 40 MG GRANULES PACKET PER TUBE SCH ×2 (09:16→20:18)
[2021-11-04] MEDS: Clopidogrel Bisulfate 75 MG TAB PO SCH (09:16)
[2021-11-04] MEDS: Aspirin Chewable 81 MG TAB PO SCH (09:16)
[2021-11-04] MEDS: ALPRAZolam 1 MG TAB PO SCH (09:17)
[2021-11-04] MEDS: Lisinopril 20 MG TAB PO SCH ×2 (09:17→20:18)
[2021-11-04] MEDS: Bacitracin 1 PK TOP PRN (16:46)
[2021-11-04] MEDS: Atorvastatin Calcium 40 MG TAB PO SCH (20:18)
[2021-11-05] MEDS: Lisinopril 20 MG TAB PO SCH ×2 (08:59→20:55)
[2021-11-05] MEDS: Amlodipine 5 MG TAB PO SCH ×2 (08:59→20:55)
[2021-11-05] MEDS: Pantoprazole 40 MG GRANULES PACKET PER TUBE SCH ×2 (08:59→20:56)
[2021-11-05] MEDS: Aspirin Chewable 81 MG TAB PO SCH (08:59)
[2021-11-05] MEDS: Clopidogrel Bisulfate 75 MG TAB PO SCH (08:59)
[2021-11-05] MEDS: Carvedilol 6.25 MG TAB PO SCH ×2 (08:59→17:36)
[2021-11-05] MEDS: Atorvastatin Calcium 40 MG TAB PO SCH (20:55)
[2021-11-05 22:32] LABS: SARS-CoV-2 PCR by NAA Not Detected (NotDetected)
[2021-11-06] MEDS: Lorazepam 2 MG/ML VIAL SLOW IVP PRN (02:05)
[2021-11-06] MEDS: Amlodipine 5 MG TAB PO SCH ×2 (09:27→21:24)
[2021-11-06] MEDS: Clopidogrel Bisulfate 75 MG TAB PO SCH (09:27)
[2021-11-06] MEDS: Aspirin Chewable 81 MG TAB PO SCH (09:27)
[2021-11-06] MEDS: Carvedilol 6.25 MG TAB PO SCH ×2 (09:27→17:54)
[2021-11-06] MEDS: Lisinopril 20 MG TAB PO SCH ×2 (09:28→21:23)
[2021-11-06] MEDS: Pantoprazole 40 MG GRANULES PACKET PER TUBE SCH ×2 (09:33→21:27)
[2021-11-06] MEDS: Bacitracin 1 PK TOP PRN ×2 (17:53→17:54)
[2021-11-06] MEDS: Atorvastatin Calcium 40 MG TAB PO SCH (21:23)
[2021-11-07] MEDS: Lisinopril 20 MG TAB PO SCH ×3 (09:16→21:38)
[2021-11-07] MEDS: Amlodipine 5 MG TAB PO SCH ×2 (09:16→20:40)
[2021-11-07] MEDS: Clopidogrel Bisulfate 75 MG TAB PO SCH (09:16)
[2021-11-07] MEDS: Aspirin Chewable 81 MG TAB PO SCH (09:16)
[2021-11-07] MEDS: Carvedilol 6.25 MG TAB PO SCH ×2 (09:16→17:06)
[2021-11-07] MEDS: Pantoprazole 40 MG GRANULES PACKET PER TUBE SCH ×2 (09:21→20:40)
[2021-11-07] MEDS: Bacitracin 1 PK TOP PRN (18:31)
[2021-11-07] MEDS: Lorazepam 2 MG/ML VIAL SLOW IVP PRN (18:42)
[2021-11-07] MEDS: Atorvastatin Calcium 40 MG TAB PO SCH (20:40)
[2021-11-07] MEDS ORDERED: Sodium Chloride 0.9% 500 ML IV SCH (23:45)
[2021-11-08] MEDS: Carvedilol 6.25 MG TAB PO SCH (08:58)
[2021-11-08] MEDS: Lisinopril 20 MG TAB PO SCH (08:59)
[2021-11-08] MEDS: Clopidogrel Bisulfate 75 MG TAB PO SCH (08:59)
[2021-11-08] MEDS: Aspirin Chewable 81 MG TAB PO SCH (08:59)
[2021-11-08] MEDS: Pantoprazole 40 MG GRANULES PACKET PER TUBE SCH (08:59)
[2021-11-08] MEDS: Amlodipine 5 MG TAB PO SCH (09:00)
[2021-11-08 12:04] VITALS: BP 92/65; TEMP 97.9
== END 2021-11-08 15:55 | DRG 64 ==
LOC: ERS 12:42 → NEURO 15:00 → OBSVTOIN 10-21 14:40
PROVIDERS: ADMIT Internal Medicine; ATTEND Internal Medicine
PROC: 0DH63UZ Insertion of Feeding Device into Stomach, Percutaneous Approach (ICD-10-PCS; principal; 2021-11-02)
DX: I63.9 Cerebral infarction, unspecified (principal); G92.8 Other toxic encephalopathy; G81.94 Hemiplegia, unspecified affecting left nondominant side; R29.727 NIHSS score 27; Z20.822 Contact with and (suspected) exposure to COVID-19; I10 Essential (primary) hypertension; F15.10 Other stimulant abuse, uncomplicated; R13.12 Dysphagia, oropharyngeal phase; F17.210 Nicotine dependence, cigarettes, uncomplicated; F12.10 Cannabis abuse, uncomplicated; F41.9 Anxiety disorder, unspecified; K29.60 Other gastritis without bleeding; R45.1 Restlessness and agitation; Z78.1 Physical restraint status; Z28.82 Immunization not carried out because of caregiver refusal; Z86.73 Personal history of transient ischemic attack (TIA), and cerebral infarction without residual deficits; Z79.899 Other long term (current) drug therapy; Z79.82 Long term (current) use of aspirin
CPT/HCPCS: 36415; 36416; 70450; 70496; 70498; 70551; 80048; 80053; 80306; 80307; 82550; 84484; 85025; 85610; 85730; 93005; 95712; 95819; 95957; 96374; C9113; G0378; J2060; J2270; J2704; J7030; J7042; J7050; Q9966; U0003; U0005

== ENCOUNTER 2022-04-13 12:08 | Inpatient (IN) | payer OTHER, SELFPAY ==
[2022-04-13 13:24] LABS: #Basophils 0.1 thou/uL (0.0-0.2); #Eosinphils 0.4 thou/uL (0.0-0.7); #Monocytes 0.6 thou/uL (0.11-0.59); #Neutrophils 5.2 thou/uL (1.40-6.50); %Basophils 0.8 % (0.0-1.0); %Eosinophils 5.1 % (0.0-10.0); %Monocytes 7.7 % (0.0-10.0); %Neutrophils 72.4 % (42.0-75.0); Hemoglobin 12.4 g/dL (14.0-18.0); Mean Corpuscular HGB CONC 30.5 g/dL (32.0-36.0); Mean Corpuscular Hemoglobin 30.1 pg (27.0-31.0); Mean Corpuscular Volume 98.4 fL (78.0-98.0); Mean Platelet Volume 9.5 fL (7.4-10.4); Platelet Count 149 thou/uL (130-400); RBC Distribution Width 13.6 % (11.5-14.5); Red Blood Cell (RBC) Count 4.12 mill/uL (4.70-6.10); White Blood Cell (WBC) Count 7.2 thou/uL (4.8-10.8)
[2022-04-13] MEDS ORDERED: Haloperidol Lactate 5 MG/ML VIAL ONE (13:48)
[2022-04-13 14:13] LABS: Bilirubin Negative (Negative); Blood, Urine Negative (Negative); Clarity Clear (Clear); Glucose, Urine (Dipstick) Normal (Negative); Ketone, Urine Negative (Negative); Leukocyte Negative Leu/uL (Negative); Nitrite Negative (Negative); Protein, Urine (Dipstick) Negative (Neg-Trace); Specific Gravity, Urine 1.021 (1.002-1.036); Urobilinogen Normal mg/dL (Less than 2); pH, Urine 6.5 (5.0-9.0)
[2022-04-13 15:04] LABS: ALT (SGPT) 181 U/L (8-55); AST (SGOT) 111 U/L (5-34); Albumin 3.4 g/dL (3.5-5.0); Alkaline Phosphatase 553 U/L (40-110); Anion Gap 12 mmol/L (10-20); BUN (Urea Nitrogen) 23 mg/dL (8.4-25.7); Bilirubin, Total 0.2 mg/dL (0.2-1.2); Calc. Creatinine Clearance 0 mL/min (70-130); Calcium 9.5 mg/dL (7.8-10.44); Carbon Dioxide 24 mmol/L (22-29); Chloride 106 mmol/L (98-107); Globulin 6.3 g/dL (2.4-3.5); Glucose 148 mg/dL (70-105); Potassium 4.4 mmol/L (3.5-5.1); Protein, Total 9.7 g/dL (6.0-8.3); Sodium 138 mmol/L (136-145)
[2022-04-13] MEDS ORDERED: Ondansetron PF 4 MG/2 ML Vial IVP PRN ×2 (19:15→22:50)
[2022-04-13] MEDS ORDERED: Ondansetron ODT 4 MG TAB SL PRN (19:15)
[2022-04-13 21:57] VITALS: BMI 24.0
[2022-04-13] MEDS ORDERED: Acetaminophen 325 MG TAB PO PRN (22:50)
[2022-04-13] MEDS ORDERED: Guaifenesin DM 100-10/5 ML UDCUP PO PRN (22:51)
[2022-04-14] MEDS ORDERED: Bisacodyl 5 MG TAB PO PRN (01:19)
[2022-04-14] MEDS ORDERED: Amlodipine 5 MG TAB PO PRN (01:19)
[2022-04-14] MEDS ORDERED: hydrALAZINE 20 MG/ML VIAL SLOW IVP PRN (02:11)
[2022-04-14] MEDS: Carvedilol 6.25 MG TAB PO SCH ×2 (06:17→15:41)
[2022-04-14] MEDS: Aspirin 81 mg Enteric Coated Tablet PO SCH (08:45)
[2022-04-14] MEDS: Clopidogrel Bisulfate 75 MG TAB PO SCH (08:46)
[2022-04-14] MEDS: Heparin 5,000 UNITS/ML VIAL SC SCH ×3 (08:46→21:36)
[2022-04-14] MEDS ORDERED: Lisinopril 20 MG TAB PO SCH (09:00)
[2022-04-14] MEDS ORDERED: Famotidine 20 MG TAB PO SCH (09:00)
[2022-04-14 09:12] LABS: #Eosinphils 0.6 thou/uL (0.0-0.7); #Lymphocytes 1.5 thou/uL (1.20-3.40); #Monocytes 0.7 thou/uL (0.11-0.59); #Neutrophils 4.2 thou/uL (1.40-6.50); %Basophils 0.3 % (0.0-1.0); %Lymphocytes 21.9 % (21.0-51.0); %Monocytes 9.3 % (0.0-10.0); %Neutrophils 60.6 % (42.0-75.0); Mean Corpuscular HGB CONC 31.9 g/dL (32.0-36.0); Mean Corpuscular Hemoglobin 30.2 pg (27.0-31.0); Mean Corpuscular Volume 94.5 fL (78.0-98.0); Mean Platelet Volume 9.2 fL (7.4-10.4); Platelet Count 165 thou/uL (130-400); RBC Distribution Width 13.4 % (11.5-14.5); Red Blood Cell (RBC) Count 3.63 mill/uL (4.70-6.10)
[2022-04-14 09:28] LABS: ALT (SGPT) 162 U/L (8-55); AST (SGOT) 94 U/L (5-34); Albumin 3.4 g/dL (3.5-5.0); Alkaline Phosphatase 534 U/L (40-110); Anion Gap 11 mmol/L (10-20); BUN (Urea Nitrogen) 18 mg/dL (8.4-25.7); Bilirubin, Total 0.4 mg/dL (0.2-1.2); Calc. Creatinine Clearance 67 mL/min (70-130); Calcium 9.4 mg/dL (7.8-10.44); Carbon Dioxide 25 mmol/L (22-29); Chloride 106 mmol/L (98-107); Globulin 6.3 g/dL (2.4-3.5); Glucose 90 mg/dL (70-105); Potassium 4.1 mmol/L (3.5-5.1); Protein, Total 9.7 g/dL (6.0-8.3); Sodium 138 mmol/L (136-145)
[2022-04-14 09:29] LABS: Bilirubin, Direct 0.2 mg/dL (0.1-0.3)
[2022-04-14 11:54] LABS: HBSAB Concentration Less than 8.00 mIU/mL; HBSAg Index 0.53 S/CO (0-0.99); Hep B Surf AB Non-Reactive (NonReactive); Hep B Surf Ag Non-Reactive S/CO (NonReactive); Hep C IgG Ab Non-Reactive (NonReactive); Hep C Index 0.19 S/CO (0-0.79)
[2022-04-14] MEDS ORDERED: Sodium Chloride 0.9% 1,000 ML IV SCH (20:30)
[2022-04-14] MEDS ORDERED: Atorvastatin Calcium 40 MG TAB PO SCH (21:00)
[2022-04-15] MEDS: Heparin 5,000 UNITS/ML VIAL SC SCH ×3 (08:08→20:42)
[2022-04-15] MEDS: Clopidogrel Bisulfate 75 MG TAB PO SCH (08:13)
[2022-04-15] MEDS: Carvedilol 6.25 MG TAB PO SCH ×2 (08:13→15:22)
[2022-04-15] MEDS: Aspirin 81 mg Enteric Coated Tablet PO SCH (08:13)
[2022-04-15] MEDS: Sodium Chloride 0.9% 1,000 ML IV SCH ×2 (08:21→15:24)
[2022-04-15 08:38] LABS: ALT (SGPT) 120 U/L (8-55); AST (SGOT) 68 U/L (5-34); Albumin 3.1 g/dL (3.5-5.0); Alkaline Phosphatase 466 U/L (40-110); Bilirubin, Direct 0.3 mg/dL (0.1-0.3); Bilirubin, Total 0.4 mg/dL (0.2-1.2); Protein, Total 8.9 g/dL (6.0-8.3)
[2022-04-15 11:38] LABS: Syphilis Antibody Nonreactive (Nonreactive)
[2022-04-16] MEDS: Sodium Chloride 0.9% 1,000 ML IV SCH ×2 (01:25→13:55)
[2022-04-16] MEDS: Heparin 5,000 UNITS/ML VIAL SC SCH ×3 (08:26→20:26)
[2022-04-16] MEDS: Clopidogrel Bisulfate 75 MG TAB PO SCH (08:27)
[2022-04-16] MEDS: Aspirin 81 mg Enteric Coated Tablet PO SCH (08:27)
[2022-04-16] MEDS: Carvedilol 6.25 MG TAB PO SCH ×2 (08:27→16:12)
[2022-04-16 08:41] LABS: ALT (SGPT) 132 U/L (8-55); AST (SGOT) 89 U/L (5-34); Albumin 3.1 g/dL (3.5-5.0); Alkaline Phosphatase 463 U/L (40-110); Bilirubin, Direct 0.2 mg/dL (0.1-0.3); Bilirubin, Total 0.3 mg/dL (0.2-1.2); Protein, Total 8.5 g/dL (6.0-8.3)
[2022-04-16 15:30] LABS: %CD4 (Helper/Inducer) 27.7 % (30.8-58.5); Absolute CD4 332 /uL (359-1519); Lymphocytes/Gated Cell Count 1.2 x10E3/uL (0.7-3.1); Total Lymphocyte 17 % (Not Estab.); WBC Total Count 6.9 x10E3/uL (3.4-10.8)
[2022-04-17] MEDS: Sodium Chloride 0.9% 1,000 ML IV SCH ×2 (00:06→11:39)
[2022-04-17] MEDS ORDERED: Lorazepam 2 MG/ML VIAL SLOW IVP PRN (08:00)
[2022-04-17] MEDS: Clopidogrel Bisulfate 75 MG TAB PO SCH (08:36)
[2022-04-17] MEDS: Aspirin 81 mg Enteric Coated Tablet PO SCH (08:36)
[2022-04-17] MEDS: Carvedilol 6.25 MG TAB PO SCH ×2 (08:37→16:55)
[2022-04-17] MEDS: Heparin 5,000 UNITS/ML VIAL SC SCH ×3 (08:39→20:09)
[2022-04-17 18:38] LABS: LOG10 HIV-1 RNA 4.299 (.)
[2022-04-18] MEDS: Clopidogrel Bisulfate 75 MG TAB PO SCH (09:21)
[2022-04-18] MEDS: Aspirin 81 mg Enteric Coated Tablet PO SCH (09:21)
[2022-04-18] MEDS: Carvedilol 6.25 MG TAB PO SCH ×2 (09:21→17:24)
[2022-04-18] MEDS: Heparin 5,000 UNITS/ML VIAL SC SCH ×3 (09:21→21:02)
[2022-04-19] MEDS: Carvedilol 6.25 MG TAB PO SCH (07:41)
[2022-04-19] MEDS: Heparin 5,000 UNITS/ML VIAL SC SCH ×2 (09:42→17:13)
[2022-04-19] MEDS: Aspirin 81 mg Enteric Coated Tablet PO SCH (09:42)
[2022-04-19] MEDS: Clopidogrel Bisulfate 75 MG TAB PO SCH (09:42)
[2022-04-19 11:40] VITALS: TEMP 97.7
[2022-04-19 16:31] VITALS: BP 143/97
== END 2022-04-19 16:51 | DRG 974 ==
LOC: EEVIPCON 12:08 → ERS 12:08 → T4-B 16:47
PROVIDERS: ADMIT Internal Medicine; ATTEND Internal Medicine
PROC: 00JU3ZZ Inspection of Spinal Canal, Percutaneous Approach (ICD-10-PCS; principal; 2022-04-17)
DX: B20 Human immunodeficiency virus [HIV] disease (principal); J18.9 Pneumonia, unspecified organism; G05.3 Encephalitis and encephalomyelitis in diseases classified elsewhere; F03.91 Unspecified dementia, unspecified severity, with behavioral disturbance; I69.351 Hemiplegia and hemiparesis following cerebral infarction affecting right dominant side; M33.29 Polymyositis with other organ involvement; Z20.822 Contact with and (suspected) exposure to COVID-19; F03.90 Unspecified dementia, unspecified severity, without behavioral disturbance, psychotic disturbance, mood disturbance, and anxiety; E78.5 Hyperlipidemia, unspecified; I10 Essential (primary) hypertension; K21.9 Gastro-esophageal reflux disease without esophagitis; F41.9 Anxiety disorder, unspecified; R74.8 Abnormal levels of other serum enzymes; F12.10 Cannabis abuse, uncomplicated; G62.9 Polyneuropathy, unspecified; F15.10 Other stimulant abuse, uncomplicated; Z79.899 Other long term (current) drug therapy; Z79.82 Long term (current) use of aspirin; Z79.02 Long term (current) use of antithrombotics/antiplatelets; Z93.1 Gastrostomy status; I69.321 Dysphasia following cerebral infarction
CPT/HCPCS: 36415; 62270; 70450; 71045; 74230; 76705; 80053; 80076; 81003; 82140; 82248; 82550; 84145; 85025; 86361; 86480; 86706; 86708; 86780; 86803; 87340; 87536; 87899; 96360; 96372; J1630; J1644; J2060; J7050; U0003; U0005

== ENCOUNTER 2022-04-22 12:58 | Inpatient (IN) | payer SELFPAY ==
[2022-04-22] MEDS ORDERED: Lorazepam 2 MG/ML VIAL ONE ×4 (13:12→19:06)
[2022-04-22 13:40] LABS: #Eosinphils 0.6 thou/uL (0.0-0.7); #Monocytes 1.3 thou/uL (0.11-0.59); #Neutrophils 5.5 thou/uL (1.40-6.50); %Basophils 0.3 % (0.0-1.0); %Eosinophils 6.7 % (0.0-10.0); %Lymphocytes 21.5 % (21.0-51.0); %Monocytes 13.6 % (0.0-10.0); %Neutrophils 57.8 % (42.0-75.0); Hemoglobin 9.1 g/dL (14.0-18.0); Mean Corpuscular HGB CONC 31.6 g/dL (32.0-36.0); Mean Corpuscular Hemoglobin 29.8 pg (27.0-31.0); Mean Corpuscular Volume 94.4 fL (78.0-98.0); Mean Platelet Volume 9.8 fL (7.4-10.4); Platelet Count 140 thou/uL (130-400); RBC Distribution Width 14.1 % (11.5-14.5); Red Blood Cell (RBC) Count 3.06 mill/uL (4.70-6.10); White Blood Cell (WBC) Count 9.5 thou/uL (4.8-10.8)
[2022-04-22 13:58] LABS: ALT (SGPT) 96 U/L (8-55); AST (SGOT) 98 U/L (5-34); Albumin 2.8 g/dL (3.5-5.0); Alkaline Phosphatase 292 U/L (40-110); Anion Gap 15 mmol/L (10-20); BUN (Urea Nitrogen) 25 mg/dL (8.4-25.7); Bilirubin, Total 0.3 mg/dL (0.2-1.2); CK (CPK) 1769 U/L (30-200); Calc. Creatinine Clearance 0 mL/min (70-130); Calcium 8.5 mg/dL (7.8-10.44); Carbon Dioxide 21 mmol/L (22-29); Chloride 108 mmol/L (98-107); Glucose 134 mg/dL (70-105); Potassium 4.6 mmol/L (3.5-5.1); Protein, Total 7.8 g/dL (6.0-8.3); Sodium 139 mmol/L (136-145)
[2022-04-22 15:34] LABS: Bilirubin Negative (Negative); Blood, Urine Negative (Negative); Clarity Clear (Clear); Glucose, Urine (Dipstick) Normal (Negative); Ketone, Urine Negative (Negative); Leukocyte Negative Leu/uL (Negative); Nitrite Negative (Negative); Protein, Urine (Dipstick) 20 mg/dL (Neg-Trace); Specific Gravity, Urine 1.021 (1.002-1.036); Urobilinogen Normal mg/dL (Less than 2)
[2022-04-22 16:37] LABS: Lactic Acid 2.2 mmol/L (0.5-2.2)
[2022-04-22] MEDS ORDERED: Ondansetron ODT 4 MG TAB PO PRN (16:47)
[2022-04-22] MEDS ORDERED: Ondansetron PF 4 MG/2 ML Vial IVP PRN (16:47)
[2022-04-22] MEDS: Sodium Chloride 0.9% 1,000 ML IV SCH (17:58)
[2022-04-22 18:11] LABS: Amphetamine Not Detected (NotDetected); Barbiturates Screen Not Detected (NotDetected); Benzodiazepine Screen Detected (NotDetected); Cocaine Metabolite Screen Not Detected (NotDetected); Methadone Not Detected (NotDetected); Methamphetamine Not Detected (NotDetected); Opiate Screen Not Detected (NotDetected); Oxycodone Screen Not Detected (NotDetected); Phencyclidine (PCP) Not Detected (NotDetected); THC/Cannabinoid Screen Not Detected (NotDetected); Tricyclic Screen Detected (NotDetected)
[2022-04-22] MEDS ORDERED: Sterile Water 10 ML ONE (18:39)
[2022-04-22] MEDS ORDERED: Ziprasidone 20 MG VIAL ONE (18:39)
[2022-04-22] MEDS ORDERED: Sterile Water 10 ML VIAL FS SCH (18:45)
[2022-04-22] MEDS ORDERED: Ziprasidone 20 MG VIAL IM SCH (18:45)
[2022-04-22 19:34] LABS: Magnesium 1.9 mg/dL (1.6-2.6)
[2022-04-22 19:35] LABS: Acetaminophen Less than 10.0 mcg/mL (10.0-30.0); Alcohol Less than 10 mg/dL (Less than 10); Salicylate Less than 8.0 mg/dL (15.0-30.0)
[2022-04-22 22:08] VITALS: BMI 22.4
[2022-04-23 05:12] LABS: #Eosinphils 0.5 thou/uL (0.0-0.7); #Lymphocytes 1.1 thou/uL (1.20-3.40); #Monocytes 0.6 thou/uL (0.11-0.59); #Neutrophils 3.7 thou/uL (1.40-6.50); %Basophils 0.4 % (0.0-1.0); %Lymphocytes 18.8 % (21.0-51.0); %Monocytes 10.6 % (0.0-10.0); %Neutrophils 62.2 % (42.0-75.0); Hemoglobin 8.6 g/dL (14.0-18.0); Mean Corpuscular HGB CONC 31.9 g/dL (32.0-36.0); Mean Corpuscular Hemoglobin 30.4 pg (27.0-31.0); Mean Corpuscular Volume 95.3 fL (78.0-98.0); Mean Platelet Volume 9.2 fL (7.4-10.4); Platelet Count 148 thou/uL (130-400); RBC Distribution Width 14.2 % (11.5-14.5); Red Blood Cell (RBC) Count 2.83 mill/uL (4.70-6.10)
[2022-04-23 05:38] LABS: ALT (SGPT) 79 U/L (8-55); AST (SGOT) 72 U/L (5-34); Albumin 2.7 g/dL (3.5-5.0); Alkaline Phosphatase 270 U/L (40-110); Anion Gap 10 mmol/L (10-20); BUN (Urea Nitrogen) 15 mg/dL (8.4-25.7); Bilirubin, Total 0.3 mg/dL (0.2-1.2); CK (CPK) 1177 U/L (30-200); Calc. Creatinine Clearance 84 mL/min (70-130); Calcium 8.3 mg/dL (7.8-10.44); Carbon Dioxide 23 mmol/L (22-29); Cardiac Risk 3.4 (Less than 4.5); Chloride 113 mmol/L (98-107); Cholesterol 99 mg/dl (< 200 Desired); Globulin 4.6 g/dL (2.4-3.5); Glucose 82 mg/dL (70-105); HDL Cholesterol 29 mg/dL (>60 Neg Risk); LDL Cholesterol, Calculated 59 mg/dL; Potassium 3.7 mmol/L (3.5-5.1); Protein, Total 7.3 g/dL (6.0-8.3); Sodium 142 mmol/L (136-145); Triglycerides 53 mg/dL (Less than 150)
[2022-04-23] MEDS: Sodium Chloride 0.9% 1,000 ML IV SCH ×2 (06:02→14:08)
[2022-04-23] MEDS ORDERED: Ziprasidone 20 MG VIAL IM SCH (16:00)
[2022-04-23] MEDS ORDERED: hydrOXYzine 25 MG TAB PER TUBE SCH (19:43)
[2022-04-24] MEDS ORDERED: hydrOXYzine 25 MG TAB PER TUBE SCH (01:46)
[2022-04-24] MEDS: Melatonin 3 MG TAB PER TUBE PRN ×2 (02:05→21:40)
[2022-04-24] MEDS: Acetaminophen 325 MG TAB PO PRN ×2 (02:05→09:41)
[2022-04-24] MEDS: Sodium Chloride 0.9% 1,000 ML IV SCH ×3 (03:02→21:39)
[2022-04-24] MEDS ORDERED: Ziprasidone 20 MG VIAL IM SCH ×2 (04:45→16:30)
[2022-04-24] MEDS ORDERED: Sterile Water 20 ML VIAL FS SCH (04:45)
[2022-04-24 05:26] LABS: #Eosinphils 0.5 thou/uL (0.0-0.7); #Lymphocytes 1.3 thou/uL (1.20-3.40); #Monocytes 0.7 thou/uL (0.11-0.59); #Neutrophils 3.2 thou/uL (1.40-6.50); %Basophils 0.2 % (0.0-1.0); %Lymphocytes 22.5 % (21.0-51.0); %Monocytes 13.1 % (0.0-10.0); %Neutrophils 56.1 % (42.0-75.0); Hemoglobin 8.8 g/dL (14.0-18.0); Mean Corpuscular Hemoglobin 30.2 pg (27.0-31.0); Mean Corpuscular Volume 94.3 fL (78.0-98.0); Mean Platelet Volume 9.1 fL (7.4-10.4); Platelet Count 151 thou/uL (130-400); Red Blood Cell (RBC) Count 2.91 mill/uL (4.70-6.10); White Blood Cell (WBC) Count 5.7 thou/uL (4.8-10.8)
[2022-04-24 05:46] LABS: ALT (SGPT) 70 U/L (8-55); AST (SGOT) 71 U/L (5-34); Alkaline Phosphatase 266 U/L (40-110); Anion Gap 10 mmol/L (10-20); BUN (Urea Nitrogen) 8 mg/dL (8.4-25.7); Bilirubin, Total 0.4 mg/dL (0.2-1.2); Calc. Creatinine Clearance 87 mL/min (70-130); Calcium 8.5 mg/dL (7.8-10.44); Carbon Dioxide 25 mmol/L (22-29); Chloride 109 mmol/L (98-107); Globulin 4.9 g/dL (2.4-3.5); Glucose 80 mg/dL (70-105); Potassium 3.3 mmol/L (3.5-5.1); Protein, Total 7.9 g/dL (6.0-8.3); Sodium 141 mmol/L (136-145)
[2022-04-24] MEDS ORDERED: Potassium Chloride 20 MEQ TAB PO SCH (11:15)
[2022-04-24] MEDS ORDERED: hydrOXYzine 25 MG TAB PO SCH (20:11)
[2022-04-25 05:17] LABS: #Eosinphils 0.6 thou/uL (0.0-0.7); #Lymphocytes 1.7 thou/uL (1.20-3.40); #Monocytes 0.9 thou/uL (0.11-0.59); #Neutrophils 3.9 thou/uL (1.40-6.50); %Basophils 0.6 % (0.0-1.0); %Eosinophils 8.2 % (0.0-10.0); %Lymphocytes 24.1 % (21.0-51.0); %Monocytes 12.5 % (0.0-10.0); %Neutrophils 54.6 % (42.0-75.0); Hemoglobin 10.4 g/dL (14.0-18.0); Mean Corpuscular HGB CONC 31.7 g/dL (32.0-36.0); Mean Corpuscular Hemoglobin 30.4 pg (27.0-31.0); Mean Corpuscular Volume 95.9 fL (78.0-98.0); Mean Platelet Volume 9.1 fL (7.4-10.4); Platelet Count 179 thou/uL (130-400); RBC Distribution Width 14.2 % (11.5-14.5); Red Blood Cell (RBC) Count 3.42 mill/uL (4.70-6.10); White Blood Cell (WBC) Count 7.2 thou/uL (4.8-10.8)
[2022-04-25 05:52] LABS: ALT (SGPT) 64 U/L (8-55); AST (SGOT) 69 U/L (5-34); Albumin 3.1 g/dL (3.5-5.0); Alkaline Phosphatase 282 U/L (40-110); Anion Gap 14 mmol/L (10-20); BUN (Urea Nitrogen) 9 mg/dL (8.4-25.7); Bilirubin, Total 0.5 mg/dL (0.2-1.2); Calc. Creatinine Clearance 85 mL/min (70-130); Calcium 8.9 mg/dL (7.8-10.44); Carbon Dioxide 22 mmol/L (22-29); Chloride 107 mmol/L (98-107); Estimated GFR 102; Globulin 5.4 g/dL (2.4-3.5); Glucose 75 mg/dL (70-105); Protein, Total 8.5 g/dL (6.0-8.3); Sodium 139 mmol/L (136-145)
[2022-04-25] MEDS: Sodium Chloride 0.9% 1,000 ML IV SCH ×2 (06:02→20:54)
[2022-04-25] MEDS ORDERED: Amlodipine 5 MG TAB PO PRN (11:35)
[2022-04-25] MEDS ORDERED: Lisinopril 20 MG TAB PO SCH (12:45)
[2022-04-25] MEDS: Amitriptyline HCl 25 MG TAB PO SCH ×2 (14:45→20:56)
[2022-04-25] MEDS ORDERED: Aspirin 81 mg Enteric Coated Tablet PO SCH (14:45)
[2022-04-25] MEDS: Carvedilol 6.25 MG TAB PO SCH (17:06)
[2022-04-25] MEDS: Atorvastatin Calcium 40 MG TAB PO SCH (20:56)
[2022-04-25] MEDS: Melatonin 3 MG TAB PER TUBE PRN (20:56)
[2022-04-25] MEDS ORDERED: OLANZapine 2.5 MG TAB PO SCH (23:15)
[2022-04-26] MEDS: Sodium Chloride 0.9% 1,000 ML IV SCH ×2 (03:55→14:11)
[2022-04-26 08:07] LABS: #Eosinphils 0.6 thou/uL (0.0-0.7); #Monocytes 0.8 thou/uL (0.11-0.59); #Neutrophils 3.8 thou/uL (1.40-6.50); %Basophils 0.2 % (0.0-1.0); %Eosinophils 8.5 % (0.0-10.0); %Lymphocytes 27.9 % (21.0-51.0); %Monocytes 11.3 % (0.0-10.0); Hemoglobin 11.2 g/dL (14.0-18.0); Mean Corpuscular HGB CONC 31.5 g/dL (32.0-36.0); Mean Corpuscular Hemoglobin 29.7 pg (27.0-31.0); Mean Corpuscular Volume 94.2 fL (78.0-98.0); Mean Platelet Volume 8.7 fL (7.4-10.4); Platelet Count 208 thou/uL (130-400); RBC Distribution Width 14.4 % (11.5-14.5); Red Blood Cell (RBC) Count 3.76 mill/uL (4.70-6.10); White Blood Cell (WBC) Count 7.2 thou/uL (4.8-10.8)
[2022-04-26 08:24] LABS: ALT (SGPT) 60 U/L (8-55); AST (SGOT) 68 U/L (5-34); Albumin 3.3 g/dL (3.5-5.0); Alkaline Phosphatase 281 U/L (40-110); Anion Gap 13 mmol/L (10-20); BUN (Urea Nitrogen) 11 mg/dL (8.4-25.7); Bilirubin, Total 0.4 mg/dL (0.2-1.2); Calc. Creatinine Clearance 77 mL/min (70-130); Calcium 8.8 mg/dL (7.8-10.44); Carbon Dioxide 24 mmol/L (22-29); Chloride 109 mmol/L (98-107); Estimated GFR 94; Globulin 5.5 g/dL (2.4-3.5); Glucose 103 mg/dL (70-105); Protein, Total 8.8 g/dL (6.0-8.3); Sodium 142 mmol/L (136-145)
[2022-04-26] MEDS: Amitriptyline HCl 25 MG TAB PO SCH ×3 (08:26→20:38)
[2022-04-26] MEDS: Aspirin Chewable 81 MG TAB PO SCH (08:26)
[2022-04-26] MEDS: Lisinopril 20 MG TAB PO SCH (08:26)
[2022-04-26] MEDS: Carvedilol 6.25 MG TAB PO SCH ×2 (08:26→16:27)
[2022-04-26] MEDS: Bictegrav/Emtricit/Tenofov Ala [Biktarvy 50-200-25 Mg Tablet PO SCH (08:28)
[2022-04-26] MEDS ORDERED: Aspirin 81 mg Enteric Coated Tablet PO SCH (09:00)
[2022-04-26] MEDS: Atorvastatin Calcium 40 MG TAB PO SCH (20:38)
[2022-04-27] MEDS: Sodium Chloride 0.9% 1,000 ML IV SCH ×3 (00:22→17:48)
[2022-04-27 06:16] LABS: ALT (SGPT) 48 U/L (8-55); AST (SGOT) 53 U/L (5-34); Albumin 2.8 g/dL (3.5-5.0); Alkaline Phosphatase 224 U/L (40-110); Anion Gap 12 mmol/L (10-20); BUN (Urea Nitrogen) 10 mg/dL (8.4-25.7); Bilirubin, Total 0.4 mg/dL (0.2-1.2); Calc. Creatinine Clearance 82 mL/min (70-130); Calcium 8.4 mg/dL (7.8-10.44); Carbon Dioxide 21 mmol/L (22-29); Chloride 113 mmol/L (98-107); Estimated GFR 100; Globulin 4.7 g/dL (2.4-3.5); Glucose 76 mg/dL (70-105); Potassium 3.7 mmol/L (3.5-5.1); Protein, Total 7.5 g/dL (6.0-8.3); Sodium 142 mmol/L (136-145)
[2022-04-27 06:17] LABS: #Eosinphils 0.5 thou/uL (0.0-0.7); #Lymphocytes 1.5 thou/uL (1.20-3.40); #Monocytes 0.6 thou/uL (0.11-0.59); #Neutrophils 2.7 thou/uL (1.40-6.50); %Basophils 0.5 % (0.0-1.0); %Monocytes 11.1 % (0.0-10.0); %Neutrophils 50.4 % (42.0-75.0); Hemoglobin 10.1 g/dL (14.0-18.0); Mean Corpuscular HGB CONC 30.8 g/dL (32.0-36.0); Mean Corpuscular Volume 97.2 fL (78.0-98.0); Platelet Count 169 thou/uL (130-400); RBC Distribution Width 14.8 % (11.5-14.5); Red Blood Cell (RBC) Count 3.36 mill/uL (4.70-6.10); White Blood Cell (WBC) Count 5.3 thou/uL (4.8-10.8)
[2022-04-27] MEDS: Lisinopril 20 MG TAB PO SCH (09:39)
[2022-04-27] MEDS: Acetaminophen 325 MG TAB PO PRN (09:39)
[2022-04-27] MEDS: Amitriptyline HCl 25 MG TAB PO SCH ×3 (09:40→20:41)
[2022-04-27] MEDS: Carvedilol 6.25 MG TAB PO SCH ×2 (09:40→17:48)
[2022-04-27] MEDS: Aspirin Chewable 81 MG TAB PO SCH (09:52)
[2022-04-27] MEDS: Bictegrav/Emtricit/Tenofov Ala [Biktarvy 50-200-25 Mg Tablet PO SCH (09:55)
[2022-04-27] MEDS ORDERED: Midazolam HCl 2 mg/2 ml Vial ONE ×2 (11:12→12:11)
[2022-04-27] MEDS ORDERED: Famotidine/PF 20 mg/2ml Vial ONE (11:13)
[2022-04-27] MEDS ORDERED: fentaNYL Citrate/PF 100 MCG/2 ML SYRINGE ONE (11:13)
[2022-04-27] MEDS ORDERED: Ketamine 50 MG/ML (10ML VIAL) ONE (12:01)
[2022-04-27] MEDS ORDERED: SUGAMMADEX SODIUM 200 MG/2 ML VIAL ONE (12:01)
[2022-04-27] MEDS ORDERED: Meperidine HCl/PF 25 MG/ML VIAL SLOW IVP PRN (14:35)
[2022-04-27] MEDS ORDERED: hydrALAZINE 20 MG/ML VIAL ONE (14:35)
[2022-04-27] MEDS ORDERED: HYDROmorphone 2 MG/ML VIAL SLOW IVP PRN (14:35)
[2022-04-27] MEDS ORDERED: Promethazine HCl 25 MG/ML VIAL IVPB PRN (14:35)
[2022-04-27] MEDS ORDERED: hydrALAZINE 20 MG/ML VIAL SLOW IVP PRN (14:35)
[2022-04-27 15:36] LABS: CSF Source CSF; Clarity Clear (Clear); Tube # 4
[2022-04-27 15:38] LABS: Cell Count Non Hematic 3 %; Lymphocytes 97 %
[2022-04-27] MEDS: Atorvastatin Calcium 40 MG TAB PO SCH (20:41)
[2022-04-28] MEDS: Sodium Chloride 0.9% 1,000 ML IV SCH ×2 (02:12→12:43)
[2022-04-28] MEDS: Lisinopril 20 MG TAB PO SCH (08:21)
[2022-04-28] MEDS: Acetaminophen 325 MG TAB PO PRN ×2 (08:21→15:10)
[2022-04-28] MEDS: Aspirin Chewable 81 MG TAB PO SCH (08:21)
[2022-04-28] MEDS: Carvedilol 6.25 MG TAB PO SCH ×2 (08:21→16:11)
[2022-04-28] MEDS: Amitriptyline HCl 25 MG TAB PO SCH ×3 (08:21→20:53)
[2022-04-28] MEDS: Bictegrav/Emtricit/Tenofov Ala [Biktarvy 50-200-25 Mg Tablet PO SCH (08:25)
[2022-04-28] MEDS: Atorvastatin Calcium 40 MG TAB PO SCH (20:53)
[2022-04-28] MEDS: Melatonin 3 MG TAB PER TUBE PRN (20:53)
[2022-04-29] MEDS: Sodium Chloride 0.9% 1,000 ML IV SCH (00:15)
[2022-04-29] MEDS: Lisinopril 20 MG TAB PO SCH (09:16)
[2022-04-29] MEDS: Carvedilol 6.25 MG TAB PO SCH ×2 (09:16→16:37)
[2022-04-29] MEDS: Aspirin Chewable 81 MG TAB PO SCH (09:17)
[2022-04-29] MEDS: Bictegrav/Emtricit/Tenofov Ala [Biktarvy 50-200-25 Mg Tablet PO SCH (09:17)
[2022-04-29] MEDS: Amitriptyline HCl 25 MG TAB PO SCH ×3 (09:17→21:49)
[2022-04-29] MEDS: Atorvastatin Calcium 40 MG TAB PO SCH (21:49)
[2022-04-29] MEDS: Melatonin 3 MG TAB PER TUBE PRN (21:49)
[2022-04-30] MEDS: Carvedilol 6.25 MG TAB PO SCH ×2 (09:12→17:13)
[2022-04-30] MEDS: Aspirin Chewable 81 MG TAB PO SCH (09:13)
[2022-04-30] MEDS: Amitriptyline HCl 25 MG TAB PO SCH ×3 (09:13→20:18)
[2022-04-30] MEDS: Lisinopril 20 MG TAB PO SCH (09:13)
[2022-04-30] MEDS: Bictegrav/Emtricit/Tenofov Ala [Biktarvy 50-200-25 Mg Tablet PO SCH (09:15)
[2022-04-30] MEDS ORDERED: Docusate Sodium 10 MG/1 ML Oral Suspension PO SCH (09:19)
[2022-04-30] MEDS ORDERED: Bisacodyl 10 MG SUPP PR PRN (09:19)
[2022-04-30] MEDS: Docusate 100 MG CAP PO SCH ×2 (12:32→20:18)
[2022-04-30] MEDS: Polyethylene Glycol 3350 17 GM Packet PO SCH (12:32)
[2022-04-30] MEDS: Atorvastatin Calcium 40 MG TAB PO SCH (20:18)
[2022-04-30] MEDS: Melatonin 3 MG TAB PER TUBE PRN (20:18)
[2022-05-01] MEDS: Bictegrav/Emtricit/Tenofov Ala [Biktarvy 50-200-25 Mg Tablet PO SCH (08:13)
[2022-05-01] MEDS: Polyethylene Glycol 3350 17 GM Packet PO SCH (08:13)
[2022-05-01] MEDS: Lisinopril 20 MG TAB PO SCH (08:14)
[2022-05-01] MEDS: Docusate 100 MG CAP PO SCH ×2 (08:14→21:17)
[2022-05-01] MEDS: Carvedilol 6.25 MG TAB PO SCH ×2 (08:14→17:24)
[2022-05-01] MEDS: Amitriptyline HCl 25 MG TAB PO SCH ×3 (08:14→21:17)
[2022-05-01] MEDS: Aspirin Chewable 81 MG TAB PO SCH (08:14)
[2022-05-01] MEDS: Melatonin 3 MG TAB PER TUBE PRN (21:17)
[2022-05-01] MEDS: Atorvastatin Calcium 40 MG TAB PO SCH (21:17)
[2022-05-02 07:59] VITALS: BP 126/74; TEMP 98.3
[2022-05-02] MEDS: Polyethylene Glycol 3350 17 GM Packet PO SCH (09:41)
[2022-05-02] MEDS: Carvedilol 6.25 MG TAB PO SCH (09:42)
[2022-05-02] MEDS: Amitriptyline HCl 25 MG TAB PO SCH (09:42)
[2022-05-02] MEDS: Lisinopril 20 MG TAB PO SCH (09:42)
[2022-05-02] MEDS: Docusate 100 MG CAP PO SCH (09:42)
[2022-05-02] MEDS: Aspirin Chewable 81 MG TAB PO SCH (09:43)
[2022-05-02] MEDS: Bictegrav/Emtricit/Tenofov Ala [Biktarvy 50-200-25 Mg Tablet PO SCH (09:43)
== END 2022-05-02 12:25 | DRG 557 ==
LOC: ERS 12:58 → ERHOLD 16:10 → NEURO 21:27 → OBSVTOIN 04-23 16:11
PROVIDERS: ADMIT Student in an Organized Health Care Education/Training Program; ATTEND Internal Medicine
PROC: 009U3ZX Drainage of Spinal Canal, Percutaneous Approach, Diagnostic (ICD-10-PCS; principal; 2022-04-27)
PROC: B01B1ZZ Fluoroscopy of Spinal Cord using Low Osmolar Contrast (ICD-10-PCS; 2022-04-27)
DX: M62.82 Rhabdomyolysis (principal); G93.41 Metabolic encephalopathy; N17.9 Acute kidney failure, unspecified; E87.2 Acidosis; F03.91 Unspecified dementia, unspecified severity, with behavioral disturbance; F05 Delirium due to known physiological condition; I95.89 Other hypotension; Z20.822 Contact with and (suspected) exposure to COVID-19; I10 Essential (primary) hypertension; E78.5 Hyperlipidemia, unspecified; Z21 Asymptomatic human immunodeficiency virus [HIV] infection status; D64.9 Anemia, unspecified; R79.89 Other specified abnormal findings of blood chemistry; R74.01 Elevation of levels of liver transaminase levels; F15.10 Other stimulant abuse, uncomplicated; F17.210 Nicotine dependence, cigarettes, uncomplicated; Z86.73 Personal history of transient ischemic attack (TIA), and cerebral infarction without residual deficits; Z93.1 Gastrostomy status; Z79.899 Other long term (current) drug therapy; Z79.82 Long term (current) use of aspirin; Z79.02 Long term (current) use of antithrombotics/antiplatelets; Z78.1 Physical restraint status
CPT/HCPCS: 36415; 36416; 51701; 62270; 70450; 70551; 71045; 80053; 80061; 80306; 80307; 81003; 82140; 82550; 82607; 82746; 82945; 83605; 83735; 84146; 84157; 84425; 84443; 84484; 85025; 85060; 87899; 89051; 93005; 93306; 96361; 96372; 96374; 96376; G0378; J0360; J2060; J2250; J3486; J7050; S0028; U0003; U0005

== ENCOUNTER 2022-05-25 12:53 | Outpatient (CLI) | payer SELFPAY | END 2022-05-25 12:54 | disposition home or self-care (01) | LOC: RAD 12:53 | PROVIDERS: ATTEND Family Medicine | DX: I69.391 Dysphagia following cerebral infarction (principal); R13.10 Dysphagia, unspecified | CPT/HCPCS: 74230 ==